=== PATIENT | male | born 2000 | race African-American/Black ===

== ENCOUNTER 2018-10-01 21:04 | Emergency (ER) | payer MEDICAID, SELFPAY ==
[2018-10-01 21:06] VITALS: BP 121/54; PULSE 97; RESP 18; TEMP 37.3; O2SAT 98; BMI 25.4
--- NOTE | 2018-10-01 22:35 | RAD_ITS ---
STUDY: X-RAY CHEST REASON FOR EXAM: Male, 17 years old. Cough TECHNIQUE: PA and lateral views of the chest. COMPARISON: None. FINDINGS: The lungs are clear and expanded. There is no demonstrated pleural abnormality. Normal size heart. Normal mediastinum and michael. Normal visualized pulmonary arteries. Normal visualized aortic arch and descending thoracic aorta. Normal visualized thoracic spine. Normal visualized ribs, clavicles, and shoulders. There is no demonstrated abnormality of the visualized soft tissue structures of the upper abdomen. RAD/Chest PA and Lateral IMPRESSION: No airspace consolidation or pleural effusion. Electronically Signed: Travis Noble MD at 22:48 EDT , Service support ,
[2018-10-01] MEDS: Ibuprofen 600 MG Tablet 800 MG PO (22:41)
[2018-10-01] MEDS: Ondansetron ODT 4 MG Tablet PO (22:41)
--- NOTE | 2018-10-01 23:02 | ED.DCSUM_ITS ---
- ER Visit Summary Date of Service: 10/01/18 Chief Complaint: Multiple complaints History of Present Illness: The patient is a 17 M who has been ill for about 1 day. He complains of headache, neck pain, back pain, chest pain, subjective fevers, nasal congestion, cough, nausea and vomiting. He reports about 4-5 episodes of vomiting in the last day. No diarrhea. He is not short of breath but states he cannot breathe because of his nasal congestion. Physical Examination: Afebrile vitals normal No distress resting comfortably Tympanic membranes are clear Tonsillar hypertrophy is noted but there is no tonsillar asymmetry, erythema, tonsillar exudate he has clear speech without trismus Neck is supple with no meningismus No nuchal rigidity Heart regular rate and rhythm Lungs are clear without rales rhonchi wheezes Abdomen soft nontender Alert Test Results: Two-view chest x-ray shows no consolidation, no effusion Emergency Department Course and Treatment: Patient was symptomatically treated here with oral Zofran and oral ibuprofen. His history and presentation are consistent with a viral syndrome. He was advised on supportive care. He was given a prescription for Zofran for as needed. He understands to return for new or worsening symptoms. Patient discharged. Treatment Plan: [] Disposition: Discharge Impression: Viral syndrome This note was generated with [employer] dictation software. It may contain incorrect words, spelling, and punctuation that were not noted in review of the chart prior to signing ED Disposition - Plan for ED Patient: Referrals: Tino Hall MD [Primary Care Provider] -
--- NOTE | 2018-10-01 23:02 | ED.DEP ---
ED Disposition - Plan for ED Patient: Instructions: ED Viral Syndrome Prescriptions: Ondansetron [Zofran Odt] 4 mg PO Q8H PRN PRN #10 tab PRN Reason: Nausea Referrals: Tino Hall MD [Primary Care Provider] -
[2018-10-01 23:13] VITALS: BP 118/71; PULSE 86; RESP 16; O2SAT 99
--- NOTE | 2018-10-01 23:13 | ED.RN ---
THIS NURSE REVIEWED D/C INSTRUCTIONS WITH PT. PT VERBALIZED UNDERSTANDING OF INSTRUCTIONS. PT DENIES FURTHER NEEDS OR QUESTIONS AT THIS TIME. PT AMBULATES FROM ROOM ON OWN WITHOUT ASSISTANCE FROM STAFF
== END 2018-10-01 23:14 | disposition home or self-care (01) ==
PROVIDERS: Emergency Provider Emergency Medicine; Family Provider Family Medicine; PCP Family Medicine
DX: B34.9 Viral infection, unspecified (principal); R51 Headache; M54.2 Cervicalgia; M54.9 Dorsalgia, unspecified; R07.9 Chest pain, unspecified; R09.81 Nasal congestion; R05 Cough; R11.2 Nausea with vomiting, unspecified; J35.1 Hypertrophy of tonsils; Z72.0 Tobacco use
CPT/HCPCS: 71046; 99283

== ENCOUNTER 2018-10-03 23:47 | Emergency (ER) | payer MEDICAID, SELFPAY ==
[2018-10-03 23:48] VITALS: BP 133/70; PULSE 95; RESP 16; TEMP 36.8; O2SAT 97; BMI 24.0
[2018-10-03 23:57] VITALS: O2SAT 97
[2018-10-03 23:58] VITALS: O2SAT 98
--- NOTE | 2018-10-04 00:10 | RAD_ITS ---
HISTORY: Chest Pain SHORTNESS OF BREATH EXAM:XR Chest 2 Views COMPARISON: 10/01/2018 FINDINGS: Normal heart size. Mild central peribronchial thickening. No hyperinflation. No vascular congestion, pleural effusion, or acute pulmonary infiltration. No pneumothorax. The bony thorax appears intact. RAD/Chest PA and Lateral IMPRESSION: Mild peribronchial thickening compatible with asthma/bronchitis. No pneumonia seen. at 0053 Reported and signed by: Ham Miller MD Electronically Signed: Ham Miller, at 0:52 EDT Tel , Service support ,
--- NOTE | 2018-10-04 00:10 | EKG12_ITS ---
Test Reason : SHORTNESS OF BREATH Blood Pressure : / mmHG Vent. Rate : 078 BPM Atrial Rate : 078 BPM P-R Int : 108 ms QRS Dur : 100 ms QT Int : 380 ms P-R-T Axes : 041 062 050 degrees QTc Int : 433 ms Sinus rhythm with short LA Otherwise normal ECG Confirmed by ESTEFANY PIÑA, JOYCELYN ([id number]), associate editor ALVARO WATSON ([id number]) on 10/06/2018 1:39:17 PM Referred By: VINCE Confirmed By:JOYCELYN ALLISON MD
--- NOTE | 2018-10-04 00:16 | ED.RN ---
NO OLD EKGS IN MUSE
--- NOTE | 2018-10-04 01:03 | ED.VISSUMM ---
- ER Visit Summary Date of Service: 10/04/18 Chief Complaint: Chest pain History of Present Illness: The patient is a 17 M who presents with chest pain. I saw him a couple of days ago for viral syndrome-like illness. He was complaining of muscle aches joint aches congestion rhinorrhea coughing. He complains of shortness of breath and continues to have a productive cough. However today he also developed some sharp chest pain which is worse with certain movements deep breathing or coughing. Physical Examination: Afebrile vitals normal Moist mucous membranes Heart regular rate and rhythm Lungs clear Abdomen soft Alert Test Results: EKG shows sinus rhythm at a rate of 78 with a first-degree AV block. Two-view chest x-ray shows peribronchial thickening suggestive of bronchitis. Emergency Department Course and Treatment: Work-up as above. I do believe the patient's presentation and symptoms are consistent with bronchitis. He may have a component of pleurisy as well related to his cough. He was advised on anti-inflammatory use and supportive care. He understands to return for new or worsening symptoms and was discharged home. Treatment Plan: [] Disposition: Discharge Impression: Bronchitis This note was generated with [employer] dictation software. It may contain incorrect words, spelling, and punctuation that were not noted in review of the chart prior to signing ED Disposition - Plan for ED Patient: Referrals: Tino Hall MD [Primary Care Provider] -
--- NOTE | 2018-10-04 01:06 | ED.DCSUM_ITS ---
- ER Visit Summary Date of Service: 10/04/18 Chief Complaint: Chest pain History of Present Illness: The patient is a 17 M who presents with chest pain. I saw him a couple of days ago for viral syndrome-like illness. He was complaining of muscle aches joint aches congestion rhinorrhea coughing. He complains of shortness of breath and continues to have a productive cough. However today he also developed some sharp chest pain which is worse with certain movements deep breathing or coughing. Physical Examination: Afebrile vitals normal Moist mucous membranes Heart regular rate and rhythm Lungs clear Abdomen soft Alert Test Results: EKG shows sinus rhythm at a rate of 78 with a first-degree AV block. Two-view chest x-ray shows peribronchial thickening suggestive of bronchitis. Emergency Department Course and Treatment: Work-up as above. I do believe the patient's presentation and symptoms are consistent with bronchitis. He may have a component of pleurisy as well related to his cough. He was advised on anti- inflammatory use and supportive care. He understands to return for new or worsening symptoms and was discharged home. Treatment Plan: [] Disposition: Discharge Impression: Bronchitis This note was generated with [employer] dictation software. It may contain incorrect words, spelling, and punctuation that were not noted in review of the chart prior to signing ED Disposition - Plan for ED Patient: Referrals: Tino Hall MD [Primary Care Provider] -
--- NOTE | 2018-10-04 01:07 | ED.DEP ---
ED Disposition - Plan for ED Patient: Instructions: Acute Bronchitis Referrals: Tino Hall MD [Primary Care Provider] -
[2018-10-04 01:15] VITALS: BP 113/67; PULSE 59; RESP 16; O2SAT 98
[2018-10-04] MEDS: Ibuprofen 200 MG Tablet 400 MG PO (01:15)
== END 2018-10-04 01:16 | disposition home or self-care (01) ==
PROVIDERS: Emergency Provider Emergency Medicine; Family Provider Family Medicine; PCP Family Medicine
DX: J40 Bronchitis, not specified as acute or chronic (principal); I44.0 Atrioventricular block, first degree; Z72.0 Tobacco use
CPT/HCPCS: 71046; 93005; 99283

== ENCOUNTER 2020-12-28 19:27 | Emergency (ER) | payer MEDICAID, SELFPAY ==
[2020-12-28 19:28] VITALS: BP 123/65; PULSE 87; RESP 18; TEMP 38.1; O2SAT 97; BMI 28.6
[2020-12-28] MEDS: Ibuprofen 400 MG Tablet 800 MG PO (20:22)
[2020-12-28 21:03] LABS: Internal QC Validated? YES +Cl - CLEAR BKGD; Monotest Negative (Negative)
--- NOTE | 2020-12-28 21:12 | EX.ED.DYSGE1 ---
HPI History of Present Illness Chief Complaint: Sore Throat Informant: patient Onset/Context/Timing Onset: Days Context: Gradual Onset Timing: Waxes and wanes Current Severity: Mild Maximum Severity: Moderate Narrative Narrative: Patient presents with sore throat for the past couple days. He states he does feels very fatigued and tired. No fever noted at home but temp 100.5 on arrival here. No significant cough. No other URI symptoms. PFSH PFSH no medical history Allergy/AdvReac Type Severity Reaction Status Date / Time No Known Allergies Allergy Verified 12/28/20 19:29 Social History Smoking Status: Current some day smoker tobacco type: cigarettes ROS ROS ED Constitutional Constitutional ED: Denies chills or fever(s) Eyes Eyes: Denies change in vision ENT ENT ED: Reports other Details: Sore throat ; Denies sore throat Cardiovascular Cardiovascular: Denies chest pain Respiratory/Chest Respiratory/Chest: Denies cough or dyspnea Gastrointestinal Gastrointestinal: Denies abdominal pain, diarrhea, nausea or vomiting Genitourinary Genitourinary ED: Denies dysuria Musculoskeletal Musculoskeletal: Denies back pain Integumentary Denies rash Neurologic Neurologic: Denies headache(s) or weakness Psychiatric Psychiatric: Denies anxiety or depression Allergic/Immunologic Allergic/Immunologic ED: Denies urticaria EXAM Physical Exam Const Vital Signs: 12/28/20 19:28 Temperature 100.5 F H Temperature Source Temporal Pulse Rate 87 Respiratory Rate 18 Blood Pressure 123/65 H Blood Pressure Mean 84 Pulse Ox 97 Oxygen Delivery Method Room Air Positive well nourished and well developed General Appearance ED: well developed HEENT Reports normocephalic and head/scalp atraumatic HEENT Narrative: 3+ tonsils with erythema. No exudate. Uvula midline. Posterior pharynx exam unremarkable. Eyes PERRL and EOMs intact bilaterally Neck supple Neck Narrative: No cervical lymphadenopathy. Chest Wall inspection of chest normal and palpation of chest normal Resp normal respiratory effort and clear to auscultation bilaterally Cardio regular rate and regular rhythm GI normal to inspection, nondistended, normoactive bowel sounds Palpation: soft Extremity normal to inspection Neuro oriented x3 and no sensory deficits noted Sensorium / Orientation: alert Motor Exam: strength 5/5 throughout Psych mental status grossly normal Skin no rashes or lesions noted MDM MDM MDM Narrative Medical decision making narrative: Rapid strep and mono test are obtained. Lab Data Labs: Laboratory Results - last 24 hr 12/28/20 20:32 Monoscreen Negative Rapid strep-negative Treatment and Re-Evaluation Comments:: Patient was given ibuprofen for pain. On repeat evaluation he is resting comfortably. Test results discussed with him. He was advised that the strep will be cultured as well. If this is positive he will receive a phone call and appropriate antibiotics will be given. Supportive care is recommended. Discharge Plan Triage Chief Complaint: Sore Throat ED Provider: Echo Gerardo Dx/Rx/DC Orders Clinical Impression: Acute viral pharyngitis Instructions: ED Pharyngitis, Viral Primary Care Provider: Tino Hall Referrals: Tino Hall MD [Primary Care Provider] - Tino Lambert MD [STAFF PHYSICIAN] - As Needed Disposition Disposition: Home, Self Care Discharge Date/Time: 12/28/20 21:17
== END 2020-12-28 21:17 | disposition home or self-care (01) ==
PROVIDERS: Emergency Provider Emergency Medicine; PCP Family Medicine
DX: J02.8 Acute pharyngitis due to other specified organisms (principal); F17.210 Nicotine dependence, cigarettes, uncomplicated
CPT/HCPCS: 36415; 86308; 87880; 99283

== ENCOUNTER 2023-01-27 20:44 | Emergency (ER) | payer MEDICAID, SELFPAY ==
[2023-01-27 20:46] VITALS: BP 117/67; PULSE 82; RESP 16; TEMP 36.2; O2SAT 98; BMI 32.1
[2023-01-27] MEDS: DiphenhydrAMINE 25 MG Capsule PO (22:26)
--- NOTE | 2023-01-27 22:54 | EDS_ITS ---
HPI History of Present Illness Chief Complaint: Allergic Reaction Narrative Narrative: 22-year-old male presenting with what he thinks is an allergic reaction to work. He started a new job. He states he was working with wood and they were cutting sawing around him and he does not know if he was allergic to this. He went and sat down. He knows he is allergic to some kind of grass. He did not come into contact with the grass. He states he came to the ER because he was feeling kolby rt of breath. No abdominal pain. No rashes. [facility] Medical History Chest pain Fatigue SOB (shortness of breath) Home Medications diphenhydramine HCl 25 mg capsule (Allergy (diphenhydramine)) 25 mg PO TID PRN allergic reaction #20 caps 01/27/23 [Rx Last Taken Unknown] Allergy/AdvReac Type Severity Reaction Status Date / Time No Known Allergies Allergy Verified 12/31/20 14:54 Social History Smoking Status: Current some day smoker tobacco type: cigarettes ROS ROS ED Constitutional Constitutional ED: Denies chills, fever(s) or sweats Eyes Eyes: Denies blurry vision or change in vision ENT ENT ED: Denies ear pain or sore throat Cardiovascular Cardiovascular: Denies chest pain, palpitations or racing heartbeat Respiratory/Chest Respiratory/Chest: Reports dyspnea; Denies cough or sputum Gastrointestinal Gastrointestinal: Denies abdominal pain, constipation, diarrhea, nausea or vomiting Genitourinary Genitourinary ED: Denies dysuria, hematuria or urinary frequency Musculoskeletal Musculoskeletal: Denies arthralgias, myalgias or neck pain Integumentary Denies abscess, Abrasions or rash Neurologic Neurologic: Denies headache(s), paresthesias or weakness Psychiatric Psychiatric: Denies anxiety, depression, suicidal ideation or suicidal thoughts Endocrine Endocrinology: Denies polydipsia or polyuria EXAM Physical Exam Const Vital Signs: 01/27/23 20:46 Temperature 97.2 F L Temperature Source Temporal Pulse Rate 82 Respiratory Rate 16 Blood Pressure 117/67 Blood Pressure Mean 83 Pulse Ox 98 Oxygen Delivery Method Room Air Positive well nourished General Appearance ED: NAD; Negative for pallor HEENT Reports moist mucous membranes HEENT Narrative: No stridor Eyes PERRL and EOMs intact bilaterally Resp normal respiratory effort and clear to auscultation bilaterally Cardio regular rate and regular rhythm GI normal to inspection, nondistended, normoactive bowel sounds Extremity normal to inspection General Extremety ED: Negative for edema or tenderness General Extremity: Negative for edema Neuro oriented x3 and CN's II-XII intact bilaterally Sensorium / Orientation: alert Motor Exam: strength 5/5 throughout Psych mental status grossly normal Skin no rashes or lesions noted and no wounds General Skin Exam: Negative for jaundice or pallor MDM MDM MDM Narrative Medical decision making narrative: Well-appearing 22-year-old male presenting with shortness of breath after starting a new job where they were cutting wood around him. On physical exam he has no stridor. His lungs are clear to auscultation. Abdomen soft nontender nondistended. Heart regular rate and rhythm. No rashes. There is no evidence of any sort of allergic reaction. He states he feels better since has been out of work for a while. I did give him some Benadryl and a prescription for this. I recommended that he talk to his boss about finding a different place where he can work versus wearing a mask to work. He acknowledged understanding. Patient be discharged home in stable condition. Impression: 1. Dyspnea Discharge Plan Triage Chief Complaint: Allergic Reaction ED Provider: Jairo So Dx/Rx/DC Orders Instructions: ED General Allergic Reactions Prescriptions: New diphenhydramine HCl [Allergy (diphenhydramine)] 25 mg capsule 25 mg PO TID PRN (Reason: allergic reaction) Qty: 20 0RF Primary Care Provider: Care Physician,No Primary Referrals: Care Physician,No Primary [Primary Care Provider] - Disposition Disposition: Home, Self Care Discharge Date/Time: 01/27/23 22:32
== END 2023-01-27 22:32 | disposition home or self-care (01) ==
PROVIDERS: Emergency Provider Student in an Organized Health Care Education/Training Program; Visit Provider Student in an Organized Health Care Education/Training Program
DX: R06.00 Dyspnea, unspecified (principal); F17.210 Nicotine dependence, cigarettes, uncomplicated
CPT/HCPCS: 99283

== ENCOUNTER 2023-01-29 19:54 | Emergency (ER) | payer MEDICAID, SELFPAY ==
[2023-01-29 19:55] VITALS: BP 157/69; PULSE 89; RESP 16; TEMP 36.7; O2SAT 95; BMI 31.2
[2023-01-29] MEDS: Dicyclomine 10 MG Capsule 20 MG PO (21:28)
[2023-01-29] MEDS: 0.9% Normal Saline (1000mL) 1,000 ML 1000 ML IV (21:29)
[2023-01-29] MEDS: Ondansetron 4 MG/2 ML Vial IV (21:30)
[2023-01-29 21:31] LABS: Absolute Lymphocyte Count 2.07 X10^3/uL (0.83-4.51); Basophil# 0.05 X10^3/uL; Basophil% 0.4 % (0-1); Eosinophil# 0.05 X10^3/uL; Eosinophils% 0.4 % (0-5); Hematocrit 46.6 % (40-54); Hemoglobin 15.4 g/dL (13.0-16.5); Lymphocyte # 2.07 X10^3/ul (0.83-4.51); Lymphocyte % 15.1 % (19-41); Mean Corpuscular Hgb 29.7 pg (27.0-32.0); Mean Platelet Vol. 8.8 fl (6.2-12.0); Monocyte# 1.54 X10^3/uL; Monocyte% 11.2 % (0-10); NRBC Flagged by Analyzer 0 % (0-5); Neutrophil # 9.97 X10^3/uL (2.7-7.7); Neutrophil % 72.5 % (47-70); POSITIVE DIFFERENTIAL YES; Platelet Count 375 K/mm3 (150-450); RBC Distribution Width CV 13.2 % (11.6-14.6); RBC Distribution Width SD 43.6 fl (35.1-43.9); Red Blood Count 5.18 M/mm3 (4.6-6.2); White Blood Count 13.7 K/mm3 (4.4-11.0)
[2023-01-29 21:55] VITALS: PULSE 80; RESP 17; O2SAT 98
[2023-01-29 22:07] LABS: Differential Indicated SCAN CRITERIA MET
[2023-01-29 22:08] LABS: Differential Comment SCANNED
[2023-01-29 22:46] VITALS: TEMP 36.7
--- NOTE | 2023-01-29 22:54 | EX.ED.DYSGE1 ---
HPI History of Present Illness Chief Complaint: Abd Pain Detail of Chief Complaint: GI symptoms Informant: patient Onset/Context/Timing Onset: Today Context: Sudden Onset Timing: Intermittent and Waxes and wanes Quality: Generalized abdominal pain Location: Abdomen and myalgias Current Severity: Mild Maximum Severity: Moderate Worsened by: Vomiting diarrhea Relieved by: Nothing Associated Symptoms Associated Symptoms: Subjective fever Narrative Narrative: Patient is a 22-year-old male presents with generalized abdominal pain with nausea, vomit diarrhea that started yesterday. He does endorse thirst and dry mouth. Equivocal orthostatic symptoms. He denies headache, visual, ocular auditory symptoms. He denies cardiac respiratory symptoms. He denies dermatologic lesion. Patient was seen earlier this week for allergic reaction treated with Benadryl. Patient does complain of back pain. Patient apparently does a lot of repetitive motion and lifting at work. Patient denies joint swelling. Patient denies contact with anyone that is been ill recently. He is presently on Benadryl. He has no history of high blood pressure. Prior similar symptoms: No Recent Illness/Hospitalization: Yes [facility] Medical History Chest pain Fatigue SOB (shortness of breath) Home Medications diphenhydramine HCl 25 mg capsule (Allergy (diphenhydramine)) 25 mg PO TID PRN allergic reaction #20 caps 01/27/23 [Rx Last Taken Unknown] Allergy/AdvReac Type Severity Reaction Status Date / Time [place] Allergy Mild Other Uncoded 01/29/23 19:59 Social History (Updated 01/29/23 @ 22:[address] Lalit Reynaga MD) household members: significant other Smoking Status: Current some day smoker tobacco type: cigarettes substance use type: does not use ROS ROS ED Constitutional Constitutional ED: Reports chills, fever(s) and subjective; Denies sweats or weight loss Eyes Eyes: Denies blurry vision, change in vision or diplopia ENT ENT ED: Denies ear pain, rhinorrhea or sore throat Cardiovascular Cardiovascular: Denies chest pain, orthopnea, palpitations, paroxysmal nocturnal dyspnea or racing heartbeat Respiratory/Chest Respiratory/Chest: Denies cough, dyspnea, dyspnea on exertion, orthopnea or paroxysmal nocturnal dyspnea Gastrointestinal Gastrointestinal: Reports abdominal pain, nausea and vomiting; Denies diarrhea or melena Genitourinary Genitourinary ED: Denies dysuria, hematuria or urinary frequency Musculoskeletal Musculoskeletal: Reports arthralgias and myalgias; Denies back pain or neck pain Integumentary Denies rash Neurologic Neurologic: Reports weakness; Denies headache(s), paresthesias or other Endocrine Endocrinology: Reports cold intolerance and heat intolerance Hematologic/Lymphatic Hematologic/Lymphatic: Reports systems reviewed and no addt'l complaints, except as documented EXAM Physical Exam Const Vital Signs: 01/29/23 19:55 01/29/23 21:55 01/29/23 22:46 Temperature 98.0 F 98.1 F Temperature Source Temporal Oral Pulse Rate 89 80 Respiratory Rate 16 17 Blood Pressure 157/69 H Blood Pressure Mean 98 Pulse Ox 95 98 Oxygen Delivery Method Room Air Room Air Positive well nourished and well developed Constitutional Narrative: Patient was asleep on his right side with a sheet pulled over his head when he entered the room to examine him. He appears ill but not toxic. General Appearance ED: well developed and NAD; Negative for pallor HEENT Reports dry mucous membranes HEENT Narrative: Is normocephalic atraumatic. Ears normal. TMs normal. Nares patent. Mucosa is dry. Mouth ED: Yes dry mucous membranes Mouth: dry mucous membranes Eyes PERRL and EOMs intact bilaterally General Eye ED: Negative for pale conjunctiva or scleral icterus Neck no lymphadenopathy, supple and no JVD Chest Wall inspection of chest normal and palpation of chest normal Resp normal respiratory effort and clear to auscultation bilaterally Cardio regular rate, regular rhythm, S1 normal heart sound, S2 normal heart sound and no murmurs GI non-distended and no masses; Negative for non-tender or hepatosplenomegaly Auscultation: hypoactive bowel sounds Palpation: soft and tender other (Diffuse); Negative for guarding, mass or rebound tenderness present Extremity normal to inspection General Extremety ED: Negative for edema or tenderness General Extremity: Negative for edema Neuro oriented x3, CN's II-XII intact bilaterally and no sensory deficits noted Sensorium / Orientation: alert Psych mental status grossly normal Skin no rashes or lesions noted, no wounds and skin turgor normal General Skin Exam: Negative for jaundice or pallor MDM MDM MDM Narrative Medical decision making narrative: Is constantly symptoms are consistent with viral infection. CBC was obtained to assess white count and if there is a lymphocytic shift. Clinically patient appears dehydrated. 1 L of normal saline was ordered. When I went to reevaluate patient at 2289 he was using the restroom since he has urge to urinate. Patient vomited yesterday. No vomiting today. Had diarrhea yesterday and today. Since patient is 22 years of age with no renal disease on no medication per literature basic metabolic panel is not indicated. History & Record Review Additional record(s) reviewed:: Prior ED visit Lab Data Attestation: I reviewed the patient's lab results. Lab results narrative: Leukocytosis. Labs: Laboratory Results - last 24 hr 01/29/23 21:25 WBC 13.7 H RBC 5.18 Hgb 15.4 Hct 46.6 MCV 90.0 MCH 29.7 MCHC 33.0 RDW Std Deviation 43.6 RDW Coeff of Romi 13.2 Plt Count 375 MPV 8.8 Immature Gran % (Auto) 0.400 Neut % (Auto) 72.5 H Lymph % (Auto) 15.1 L [place] % (Auto) 11.2 H Eos % (Auto) 0.4 Baso % (Auto) 0.4 Absolute Neuts (auto) 10.0 H Absolute Lymphs (auto) 2.07 Nucleated RBC % 0 Differential Comment SCANNED Diff Path Review May foll Treatment and Re-Evaluation :: Patient was reassessed at 2255. He is improved. Discharge Plan Triage Chief Complaint: Abd Pain ED Provider: Lalit Reynaga Dx/Rx/DC Orders Clinical Impression: Nausea vomiting and diarrhea, Acute generalized abdominal pain, Systemic viral illness, Mild dehydration, Elevated blood pressure reading in office without diagnosis of hypertension Instructions: ED Hypertension, To Be Confirmed, ED Viral Syndrome (Adult) Prescriptions: No Action diphenhydramine HCl [Allergy (diphenhydramine)] 25 mg capsule 25 mg PO TID PRN (Reason: allergic reaction) Qty: 20 0RF Primary Care Provider: Care Physician,No Primary Referrals: Care Physician,No Primary [Primary Care Provider] - Activity Restrictions/Additional Instructions: 1. Advance diet as tolerated 2. Follow-up with your doctor. The name of your doctor is located on your insurance card issued to you by [facility]. 3. You should see your doctor in 1 to 2 weeks to have your blood pressure assessed. Disposition Disposition: Home, Self Care
[2023-01-29 23:03] VITALS: BP 128/68; PULSE 69; RESP 17; O2SAT 97
[2023-01-30 13:30] LABS: Pathologist Review Reviewed
== END 2023-01-29 23:19 | disposition home or self-care (01) ==
PROVIDERS: Emergency Provider Emergency Medicine; Visit Provider Emergency Medicine
DX: B34.9 Viral infection, unspecified (principal); R19.7 Diarrhea, unspecified; R11.2 Nausea with vomiting, unspecified; R03.0 Elevated blood-pressure reading, without diagnosis of hypertension; F17.210 Nicotine dependence, cigarettes, uncomplicated; R10.9 Unspecified abdominal pain; E86.0 Dehydration
CPT/HCPCS: 85025; 96361; 96374; 99284; J7030; A4216; J2405

== ENCOUNTER 2024-06-08 21:33 | Emergency (ER) | payer MEDICAID, SELFPAY ==
[2024-06-08 21:34] VITALS: BP 131/63; PULSE 60; RESP 18; TEMP 36.3; O2SAT 100; BMI 31.1
--- NOTE | 2024-06-08 21:55 | EDS_ITS ---
HPI History of Present Illness Chief Complaint: Nausea/Vomiting Detail of Chief Complaint: Vomiting x 2 with blood in second emesis Informant: patient Onset/Context/Timing Onset: Today (First episode at 2044-second episode at 2114.) Context: Sudden Onset Timing: Intermittent Quality: Complains of indigestion and noted some blood in second emesis that was lar Location: GI Current Severity: Mild Maximum Severity: Moderate Worsened by: Patient states he vomited after eating food. Relieved by: Mild discomfort Associated Symptoms Associated Symptoms: Per HPI narrative Narrative Narrative: Patient is a 23-year-old male. He has history of COVID. He presents after vomiting twice. First emesis was after eating. There is no blood noted. Second emesis was very large and there was some blood noted. There was no coffee grounds. Patient denies change in color of stool. He states his Prior similar symptoms: Yes Recent Illness/Hospitalization: No [facility] Medical History Chest pain Fatigue SOB (shortness of breath) Home Medications ?Medication ?Instructions ?Recorded ?Last Taken ?Type diphenhydramine HCl 25 mg capsule 25 mg PO TID PRN allergic reaction 01/27/23 Unknown Rx (Allergy (diphenhydramine)) #20 caps famotidine 40 mg tablet (Pepcid) 40 mg PO DAILY #14 tabs 06/08/24 Unknown Rx Allergy/AdvReac Type Severity Reaction Status Date / Time [place] Allergy Mild Other Uncoded 01/29/23 19:59 Social History (Updated 01/29/23 @ 22:[address] Lalit Reynaga MD) household members: significant other Smoking Status: Current some day smoker tobacco type: cigarettes substance use type: does not use ROS ROS ED Cardiovascular Cardiovascular: Denies chest pain or palpitations Respiratory/Chest Respiratory/Chest: Denies cough, dyspnea or dyspnea on exertion Gastrointestinal Gastrointestinal: Reports abdominal pain, nausea, vomiting and other Details: Hematemesis without coffee-ground emesis. Denies melena or hematochezia. ; Denies constipation, diarrhea or melena Musculoskeletal Musculoskeletal: Denies back pain Integumentary Denies rash Hematologic/Lymphatic Hematologic/Lymphatic: Reports systems reviewed and no addt'l complaints, except as documented EXAM Physical Exam Const Vital Signs: 06/08/24 21:34 Temperature 97.3 F L Temperature Source Temporal Pulse Rate 60 Respiratory Rate 18 Blood Pressure 131/63 H Blood Pressure Mean 85 Pulse Ox 100 Oxygen Delivery Method Room Air Positive well nourished and well developed Constitutional Narrative: Blood pressure slightly elevated. General Appearance ED: well developed and NAD; Negative for cyanotic, diaphoretic or pallor HEENT Reports moist mucous membranes HEENT Narrative: Head is atraumatic normocephalic. Ears normal. Eyes PERRL and EOMs intact bilaterally General Eye ED: Negative for pale conjunctiva Neck no lymphadenopathy, supple and no JVD Resp normal respiratory effort and clear to auscultation bilaterally Cardio regular rate, regular rhythm, S1 normal heart sound, S2 normal heart sound and no murmurs GI normal to inspection, nondistended, normoactive bowel sounds, non-distended and no masses; Negative for non-tender or hepatosplenomegaly Palpation: soft and tender epigastric (To deep palpation.) Extremity normal to inspection Neuro oriented x3 Sensorium / Orientation: alert Skin no rashes or lesions noted, no wounds and skin turgor normal General Skin Exam: elasticity normal; Negative for jaundice or pallor MDM MDM MDM Narrative Medical decision making narrative: Patient's history is consistent with a [place] tear. Uncertain the cause of his nausea and vomiting. This may have been related to the food he ate since he vomited. Shortly after eating. He states he got door Dash. He states this happened once before when he vomited aggressively multiple times. He does have history of reflux-like symptoms. He is never been formally diagnosed with reflux. Plan is GI cocktail and IV Pepcid. Patient was reevaluated at 2230. He is walking the halls. He is in no distress. His abdomen is benign. Will discharge on H2 kelli. History & Record Review Additional record(s) reviewed:: Prior ED visit (Patient was seen January 2023 for abdominal pain. He was diagnosed with nausea vomiting diarrhea at that time and generalized abdominal pain.) Treatment and Re-Evaluation :: Reassessed at 2230. Improved. Plan to discharge to home as previously ment ioned. Discharge Plan Triage Chief Complaint: Nausea/Vomiting ED Provider: Justa Reynagao Dx/Rx/DC Orders Clinical Impression: [place] tear, Nausea & vomiting Instructions: [place] Tear Prescriptions: New famotidine [Pepcid] 40 mg tablet 40 mg PO DAILY Qty: 14 0RF No Action diphenhydramine HCl [Allergy (diphenhydramine)] 25 mg capsule 25 mg PO TID PRN (Reason: allergic reaction) Qty: 20 0RF Primary Care Provider: Care Physician,No Primary Referrals: Care Physician,No Primary [Primary Care Provider] - Activity Restrictions/Additional Instructions: Follow-up with your doctor in 1 to 2 weeks. The name of your doctor is located on your insurance card issued to you by [facility]. Print Language: Turkmen Disposition Disposition: Home, Self Care
[2024-06-08] MEDS: Lidocaine 2% Viscous15 ML UDC 15 ML PO (22:04)
[2024-06-08] MEDS: Mag Hydrox/Al Hydrox/Simeth 30 ML UDC PO (22:04)
--- NOTE | 2024-06-08 22:05 | ED.RN ---
Pt refusing IV. RN explained purpose of IV and medications, pt still refusing. I just don't really think I need that. states he ate a spicy chicken sandwich and a coffee which then made him sick. Dr. Reynaga made aware. Pt accepting of GI cocktail.
== END 2024-06-08 22:40 | disposition home or self-care (01) ==
PROVIDERS: Emergency Provider Emergency Medicine; Referring Provider Emergency Medicine; Visit Provider Emergency Medicine
DX: R11.2 Nausea with vomiting, unspecified (principal); K22.6 Gastro-esophageal laceration-hemorrhage syndrome; F17.210 Nicotine dependence, cigarettes, uncomplicated
CPT/HCPCS: 99282; A4216